=== PATIENT | female | born 1945 | race Caucasian/White ===

== ENCOUNTER → 2016-11-20 | Day surgery (SDC) | payer MEDICARE, BC ==
[~2016-11-20] MED LIST: BUPIVACAINE/EPINEPHRINE 0.5% 50 ML VIAL ONE; KETOROLAC TROMETHAMINE 30 MG/ML (IVP) VIAL IV PUSH ONE; LACTATED RINGER'S 1000 ML INJ 1,000 ML ONE; MIDAZOLAM HCL 2 MG/2 ML VIAL ONE; ONDANSETRON HCL 4 MG/2 ML VIAL IV PUSH ONE; PROPOFOL 200 MG/20 ML AMP IV ONE; ceFAZolin INJ 1,000 MG VIAL ONE
--- NOTE | 2016-11-21 11:08 | MP ---
cc: THONY FUENTES M.D. DATE OF SURGERY: 11/20/2016 PREOPERATIVE DIAGNOSIS: Left knee medial meniscus tear. POSTOPERATIVE DIAGNOSIS Left knee medial and lateral meniscus tear. PROCEDURE: Left knee arthroscopic, partial medial and partial lateral meniscectomy. ANESTHESIA General SURGEON Thony Fuentes MD ESTIMATED BLOOD LOSS: estimated blood loss was minimum. SPECIMENS: The specimen fragments discarded. DRAINS: The drain none COMPLICATIONS None known. INDICATION Heath Hughes is 71-year-old female with persistent left knee pain and positive findings on MRI for medial meniscus tear as well as chondromalacia medial compartment risks, benefits of the options of treatment were thoroughly discussed in detail informed consent was obtained. PROCEDURE The patient was brought into the operating room. She was placed under general anesthetic. The left lower extremity was prepped and draped usual sterile fashion. IV antibiotics were given. Time-out was completed. The inferolateral portal was injected with Marcaine. The portal made, a blunt trocar used to introduce the cannula that there was some mild fraying of the undersurface of patella, photograph taken, ACL appeared normal, lateral compartment showed a tear involving the anterior horn and body of the lateral meniscus. We made our medial portal and proceeded with arthroscopic partial lateral meniscectomy and took follow-up photograph here and then visualized the medial compartment showed unstable tear in the body and the posterior horn involving approximately 50% depth of the posterior horn and probably 60% of the bulk of the meniscus at the junction of the body and the posterior horn of the medial meniscus as well as some unstable chondromalacia on the weightbearing portion of the medial femoral condyle. We proceeded with arthroscopic partial medial meniscectomy using combination of basket forceps and arthroscopic shaver was smooth in contour the medial femoral condyle and switched over switching stick and came in from the opposite angle and smoothed and contoured from this angle, and then switched back for final visualization final photographs. Multiple photographs were taken. Repeat diagnostic arthroscopy revealed no loose bodies arthroscopic equipment was removed. Marcaine was injected. Steri-Strips applied. Sterile dressing applied. The patient was awoken return recovery room in stable condition. MD TABATHA Hensley/john /8:25 AM /11:01 AM
== END | disposition home or self-care (01) ==
LOC: ESDC 06:04
PROVIDERS: ATTEND Orthopaedic Surgery Sports Medicine
DX: S83.282A Other tear of lateral meniscus, current injury, left knee, initial encounter (principal); S83.242A Other tear of medial meniscus, current injury, left knee, initial encounter
CPT/HCPCS: 01400; 29880; J0690; J1885; J2250; J2405; J3010; J7120

== ENCOUNTER → 2017-08-21 | Outpatient (CLI) | payer MEDICARE, BC ==
[~2017-08-21] MED LIST changes: -BUPIVACAINE/EPINEPHRINE 0.5% 50 ML VIAL ONE; +ECASA81 PO; +ESTR2TAB PO; -KETOROLAC TROMETHAMINE 30 MG/ML (IVP) VIAL IV PUSH ONE; -LACTATED RINGER'S 1000 ML INJ 1,000 ML ONE; +LEVO75TA3 PO; -MIDAZOLAM HCL 2 MG/2 ML VIAL ONE; -ONDANSETRON HCL 4 MG/2 ML VIAL IV PUSH ONE; -PROPOFOL 200 MG/20 ML AMP IV ONE; +TRAM50 PO; -ceFAZolin INJ 1,000 MG VIAL ONE
--- NOTE | 2017-08-21 12:12 | RADRPT ---
EXAM DATE/TIME: 08/21/2017 11:50 [facility] COMPARISON: No previous studies available for comparison. INDICATIONS : Evaluate for pneumonia, pneumothorax or communicable disease. Pre op knee replacement. MEDICAL HISTORY : None. SURGICAL HISTORY : None. ENCOUNTER: Initial ACUITY: 1 day PAIN SCORE: 0/10 LOCATION: Bilateral chest FINDINGS: PA and lateral views of the chest demonstrate the lungs to be symmetrically aerated without evidence of mass, infiltrate or effusion. The cardiomediastinal contours are unremarkable. Osseous structure s are intact. CONCLUSION: No acute disease. Jose Armando Vasquez MD on August 21, 2017 at 12:10 Board Certified Radiologist. This report was verified electronically.
[2017-08-21 12:38] LABS: AUTOMATED NEUTROPHIL # 3.5 TH/MM3 (1.8-7.7); BASOPHIL # 0.1 TH/MM3 (0-0.2); BASOPHIL % 0.9 % (0.0-2.0); EOSINOPHIL # 0.2 TH/MM3 (0-0.4); EOSINOPHIL % 2.5 % (0.0-4.0); HEMATOCRIT 38.9 % (35.0-46.0); HEMOGLOBIN 12.9 GM/DL (11.6-15.3); LYMPH % 37.8 % (9.0-44.0); LYMPHOCYTE # 2.6 TH/MM3 (1.0-4.8); MEAN CELL VOLUME 89.8 FL (80.0-100.0); MEAN CORPUSCULAR HEMOGLOBIN 29.8 PG (27.0-34.0); MEAN CORPUSCULAR HGB CONC 33.2 % (32.0-36.0); MEAN PLATELET VOLUME 8.7 FL (7.0-11.0); MONO % 7.9 % (0.0-8.0); MONOCYTE # 0.5 TH/MM3 (0-0.9); NEUT % 50.9 % (16.0-70.0); PLATELET COUNT 260 TH/MM3 (150-450); RED BLOOD COUNT 4.34 MIL/MM3 (4.00-5.30); RED CELL DISTRIBUTION WIDTH 12.7 % (11.6-17.2); WHITE BLOOD COUNT 6.8 TH/MM3 (4.0-11.0)
[2017-08-21 12:40] LABS: BILIRUBIN, URINE NEG (NEG); BLOOD, URINE NEG (NEG); GLUCOSE,URINE NEG (NEG); KETONE, URINE NEG (NEG); MUCUS URINE FEW /lpf (OCC); NITRITE,URINE NEG (NEG); SQUAMOUS EPITHELIAL CELL URINE 1 /hpf (0-5); URINE COLOR YELLOW (YELLW/STRAW); URINE LEUKOCYTE ESTERASE NEG (NEG)
[2017-08-21 12:45] LABS: INTERNATIONAL NORMALIZED RATIO 0.9 RATIO; PROTHROMBIN TIME - PATIENT 9.1 SEC (9.8-11.6)
[2017-08-21 12:55] LABS: BICARBONATE 29.1 MEQ/L (21.0-32.0); CALCIUM 8.6 MG/DL (8.5-10.1); CREATININE 0.77 MG/DL (0.50-1.00)
--- NOTE | 2017-08-23 00:30 | EKG ---
Date Performed: 08/21/2017 Time Performed: 11:11:24 PTAGE: 72 years EKG: Sinus rhythm WITH SINUS ARRHYTHMIA LOW QRS VOLTAGE IN PRECORDIAL LEADS PATTERN CONSISTENT WITH PULMONARY DISEASE INCOMPLETE RIGHT BUNDLE BRANCH BLOCK PROBABLE SEPTAL MYOCARDIAL INFARCTION, OF INDETERMINATE AGE ABNO RMAL ECG NO PREVIOUS TRACING DOCTOR: Franky Lubin Interpretating Date/Time 08/23/2017 00:30:42
== END ==
LOC: CPRE 10:51
PROVIDERS: ATTEND Orthopaedic Surgery Sports Medicine
DX: Z01.810 Encounter for preprocedural cardiovascular examination (principal); Z01.811 Encounter for preprocedural respiratory examination; Z01.812 Encounter for preprocedural laboratory examination; M79.609 Pain in unspecified limb; Z96.60 Presence of unspecified orthopedic joint implant; Z79.01 Long term (current) use of anticoagulants; Z13.9 Encounter for screening, unspecified
CPT/HCPCS: 36415; 71046; 80048; 81001; 85025; 85610; 85730; 93005

== ENCOUNTER 2017-09-03 05:07 | Observation (INO) | payer MEDICARE, BC ==
[~2017-09-03] VITALS: Ht 163.8 cm; Wt 85.8 kg
[2017-09-03] MEDS ORDERED: LACTATED RINGER'S 1000 ML IV PRN (05:30)
[2017-09-03] MEDS ORDERED: CHLORHEXIDINE GLUCONATE 2 % 1 PACK (2 CLOTHS) TOPICAL PRN (05:30)
[2017-09-03] MEDS ORDERED: SODIUM CHLORID 0.9% 500 ML IV PRN (05:30)
[2017-09-03] MEDS ORDERED: POVIDONE IODINE 5% (ANTISEPSIS KIT) 4 APPLICATIONS EACH NARE PRN (05:30)
[2017-09-03] MEDS ORDERED: METOPROLOL TARTRATE 25 MG TAB PO PRN (05:30)
[2017-09-03] MEDS ORDERED: FAT EMULSION 20% INJ 0 ML ONE (05:44)
[2017-09-03] MEDS ORDERED: EXPAREL PERI-ARTICULAR INJECTION (TOTAL VOL. 60 ML) P-ARTICULR SCH ×4 (05:45→06:30)
[2017-09-03] MEDS ORDERED: ceFAZolin 2 GM PREMIX 50 ML IV SCH (05:45)
[2017-09-03] MEDS ORDERED: SODIUM CHLORIDE 0.9% IV SCH (05:45)
[2017-09-03] MEDS ORDERED: TRANEXAMIC ACID IV SCH (05:45)
[2017-09-03] MEDS ORDERED: VANCOMYCIN 1000 MG/NS 250 ML (for <70 kg) IV SCH ×2 (05:45)
[2017-09-03] MEDS ORDERED: CHLORHEXIDINE GLUCONATE 4% SOLN 120 ML BTL TOPICAL SCH (05:45)
[2017-09-03] MEDS ORDERED: PROPOFOL 500 MG/50 ML INJ 50 ML ONE (06:16)
[2017-09-03] MEDS ORDERED: LIDOCAINE HCL 1% PF 5 ML AMPULE ONE (06:20)
[2017-09-03] MEDS ORDERED: BUPIVACAINE LIPOSOME PF 1.3% 20 ML VIAL ONE (06:20)
[2017-09-03] MEDS ORDERED: MIDAZOLAM HCL 2 MG/2 ML VIAL ONE (06:21)
[2017-09-03] MEDS ORDERED: GENTAMICIN SULFATE 80 MG/2 ML VIAL ONE (06:28)
[2017-09-03] MEDS ORDERED: DO NOT ADM ANY ANTICOAGULANT DRUGS PRN (09:10)
[2017-09-03] MEDS ORDERED: *morphine SULFATE 4 MG/ML PERIprocedure ONLY ONE (09:18)
--- NOTE | 2017-09-03 09:25 | PD.OP ---
Operative Report Preoperative Diagnosis: (1) Osteoarthritis of left knee Postoperative Diagnosis: (1) Osteoarthritis of left knee Procedure: Left Knee Unicompartmental Osteoarthritis Anesthesia: Regional and General Surgeon: Jc Fuentes MD Bar Examiner(s): Jc Mac MD Sep 03, 2017 09:25
[2017-09-03] MEDS ORDERED: *morphine SULFATE 10 MG/ML PERIprocedure ONLY ONE (09:26)
[2017-09-03] MEDS ORDERED: SODIUM CHLORIDE 0.9% FLUSH 10 ML FLUSH IV FLUSH PRN (09:45)
[2017-09-03] MEDS ORDERED: ONDANSETRON HCL 4 MG/2 ML VIAL IV PUSH PRN (09:45)
[2017-09-03] MEDS ORDERED: HYDROmorphone HCL PF 2 MG/ML VIAL ONE (09:46)
[2017-09-03] MEDS ORDERED: LACTATED RINGER'S 1000 ML INJ 1,000 ML IV SCH (10:00)
--- NOTE | 2017-09-03 10:32 | RADRPT ---
EXAM DATE/TIME: 09/03/2017 09:53 [facility] COMPARISON: CHEST PA & LAT, August 21, 2017, 11:50. INDICATIONS : Post left knee replacement. MEDICAL HISTORY : None. SURGICAL HISTORY : Hysterectomy. ENCOUNTER: Initial ACUITY: 1 day PAIN SCORE: 8/10 LOCATION: Left patella. FINDINGS: The patient is post left hemiarthroplasty in the medial compartment. Orthopedic hardware is well-posi tioned. The lateral compartment appears within normal limits. There are skin jenelle in place. CONCLUSION: 1. Orthopedic hardware is well-positioned. Harsh Arguelles MD on September 03, 2017 at 10:30 Board Certified Radiologist. This report was verified electronically.
[2017-09-03] MEDS: traMADol HCL 50 MG TAB PO PRN (10:40)
[2017-09-03] MEDS ORDERED: ceFAZolin 2 GM PREMIX 50 ML IV ONE (11:00)
[2017-09-03] MEDS: ACETAMINOPHEN/HYDROcodone 325 MG/5 MG TAB PO PRN ×3 (11:45→20:33)
[2017-09-03] MEDS ORDERED: PROPOFOL 200 MG/20 ML AMP IV ONE (12:00)
[2017-09-03] MEDS ORDERED: LIDOCAINE HCL 1% PF 5 ML SYRINGE OTHER ONE (12:00)
[2017-09-03] MEDS ORDERED: ROCURONIUM INJ 50 MG/5 ML SYRINGE IV PUSH ONE (12:00)
[2017-09-03] MEDS ORDERED: ONDANSETRON HCL 4 MG/2 ML VIAL IV PUSH ONE (12:00)
[2017-09-03] MEDS ORDERED: DEXAMETHASONE SOD PHOS 4 MG/ML VIAL IV ONE (12:00)
[2017-09-03 16:00] VITALS: BP 158/72; PULSE 68; RESP 18; TEMP 96; O2SAT 95
[2017-09-03 16:48] VITALS: BP 176/77; PULSE 66; RESP 16; TEMP 96.6; O2SAT 96
[2017-09-03 20:20] VITALS: BP 159/73; PULSE 69; RESP 14; TEMP 97.9; O2SAT 96
[2017-09-03] MEDS: SODIUM CHLORIDE 0.9% FLUSH 10 ML FLUSH IV FLUSH SCH (21:00)
[2017-09-04] VITALS: BP 143/72; PULSE 73; RESP 17; TEMP 96.7; O2SAT 96
[2017-09-04] MEDS: ACETAMINOPHEN/HYDROcodone 325 MG/5 MG TAB PO PRN ×3 (00:45→08:19)
[2017-09-04 04:05] VITALS: BP 147/66; PULSE 77; RESP 17; TEMP 98.8; O2SAT 96
[2017-09-04] MEDS: traMADol HCL 50 MG TAB PO PRN (05:44)
[2017-09-04] MEDS ORDERED: LEVOTHYROXINE SODIUM 75 MCG TAB PO SCH (06:00)
--- NOTE | 2017-09-04 07:55 | PD.ORT.PN ---
Subjective Subjective Remarks Patient pain under control Objective Vitals Vital Signs Date Time Temp Pulse Resp B/P (MAP) Pulse Ox O2 Delivery O2 Flow Rate FiO2 09/04/17 04:05 98.8 77 17 147/66 (93) 96 09/04/17 00:00 96.7 73 17 143/72 (95) 96 09/03/17 20:20 97.9 69 14 159/73 (101) 96 09/03/17 16:48 96.6 66 16 176/77 (110) 96 09/03/17 16:00 96.0 68 18 158/72 (100) 95 09/03/17 13:30 97.6 69 16 143/65 (91) 95 Room Air 09/03/17 13:00 70 16 140/60 (86) 94 Room Air 09/03/17 12:00 71 16 145/67 (93) 94 Room Air 09/03/17 11:40 16 09/03/17 11:00 74 16 148/69 (95) 97 Nasal Cannula 2 09/03/17 10:30 97.7 72 16 152/65 (94) 95 Nasal Cannula 2 09/03/17 10:15 15 09/03/17 10:00 97.1 75 15 158/70 (99) 100 Nasal Cannula 3 09/03/17 09:45 78 15 159/76 (103) 98 Nasal Cannula 3 09/03/17 09:31 15 09/03/17 09:30 96.7 80 15 160/79 (106) 97 Nasal Cannula 3 09/03/17 09:23 15 09/03/17 09:15 82 15 171/80 (110) 99 Nasal Cannula 4 09/03/17 09:10 96.3 84 18 175/76 (109) 98 Nasal Cannula 4 09/03/17 09:10 96.3 I/O 09/03/17 09/03/17 09/03/17 09/04/17 09/04/17 09/04/17 07:00 15:00 23:00 07:00 15:00 23:00 Intake Total 1260 ml 360 ml 360 ml Output Total 50 ml Balance 1210 ml 360 ml 360 ml Intake Oral 360 ml 360 ml IV Total 1260 ml Output Estimated Blood Loss 50 ml # Voids 0 1 3 # Bowel Movements 0 0 Imaging Post op xrays show good alignment Objective Remarks Dressing in place Calves soft NVI Assessment & Plan Ortho Post Op Day #: 1 (Left Unicompartmental knee replacement) Problem List: Assessment and Plan PT WBAT Ok to D/C home Home PT [place] pain med Aspirin for DVT Prophylaxis Jc Fuentes MD Sep 04, 2017 07:55
[2017-09-04 08:00] VITALS: BP 166/77; PULSE 74; RESP 16; TEMP 98.2; O2SAT 95
[2017-09-04] MEDS ORDERED: HYDR-3516 PO (08:00)
[2017-09-04] MEDS: SODIUM CHLORIDE 0.9% FLUSH 10 ML FLUSH IV FLUSH SCH (08:22)
[2017-09-04] MEDS ORDERED: ACETAMINOPHEN/HYDROcodone 325 MG/5 MG TAB PO PRN (08:30)
[2017-09-04] MEDS ORDERED: ESTRADIOL 1 MG TAB PO SCH (09:00)
[2017-09-04] MEDS ORDERED: ASPIRIN 81 MG CHEW TAB PO SCH (09:00)
[2017-09-04] MEDS ORDERED: WALKER WHEELS/F1 MIS (10:17)
--- NOTE | 2017-09-04 19:28 | MP ---
cc: THONY LANDERS DATE OF SURGERY 09/03/17 PREOPERATIVE DIAGNOSIS Left knee medial compartment severe osteoarthritis. POSTOPERATIVE DIAGNOSIS Left knee medial compartment severe osteoarthritis. PROCEDURE Left knee unicompartmental arthroplasty medial compartment ANESTHESIA Adductor block and general SURGEON Christina Landers MD SHOE FITTER SURGEON Yaakov EAGLE ESTIMATED BLOOD LOSS 50 mL DRAINS None. SPECIMEN Bony fragments discarded. COMPLICATIONS None known. INDICATION Izabel Hughes is a 72-year-old female with debilitating varus medial compartment osteoarthritis. She is failing conservative management. The risks, benefits and alternative and treatment options were thoroughly discussed and a detailed informed consent was obtained. The airline pilot/first officer, Roby Mon, is an advanced registered nurse practitioner. His skill set was medically necessary for the performance of the operation. PROCEDURE IN DETAIL The patient was brought into the operating room after receiving an adductor canal block in the preop holding area. She was then placed under general anesthesia in the operating room. The left lower extremity was prepped and draped in the usual sterile fashion. IV antibiotics were given. Time-out was completed. Anterior approach to the knee in alignment with the medial edge of the patella and patellar tendon. This was taken down to the subcutaneous tissue. Hemostasis was obtained with the use of electrocautery. Tourniquet had been inflated. A medial parapatellar incision was used and the fat pad was tagged for later repair. We noted the severe osteoarthritis of the medial compartment. We did some partial subperiosteal dissection anterior tibia. We aligned our tibial resection guide and used our vertically oriented reciprocating saw and then our horizontally oscillating saw and resected 2 mm of bone to the lowest portion. We then proceeded with sizing and alignment of the tibial component which is sized for a size four. then we proceeded to make our 8 mm distal femoral cut. I then proceeded to size the tibia size 4, used a size 4 cutting block. All cuts made, peg holes made. We then resected the meniscus and injected our long-acting Marcaine and then we trialed our components. The 9 mm polyethylene was most appropriate. Full extension and gravity flexion to 135 degrees. We made our finishing cuts on the tibia and then proceeded with pulse lavage antibiotic irrigation. We then proceeded with mixing our cement after the components were on the field and then placing our components, removing residual cement and then performing our trial reduction again. Decided on the size 9 and a size 9 initial polyethylene would not seat into the prosthesis and ultimately a second size 9 polyethylene was opened which then did seat into position. At this point, we irrigated out with copious amounts of irrigation. We proceeded to close the fat pad and then proceeded to close in layers. The tourniquet was let down. Subcuticular on the skin with 3-0 and then jenelle on the skin. Xeroform applied. Sterile dressing applied. Sof-Rol and Wiliam wrap applied. The patient was awaken and returned to recovery room in stable condition. MD TABATHA Hensley/ /9:13 AM /7:16 PM
== END 2017-09-04 12:32 | disposition home or self-care (01) ==
LOC: HSDC 05:07 → HSDI 09:46 → N06B 13:39
PROVIDERS: ADMIT Orthopaedic Surgery Sports Medicine; ATTEND Orthopaedic Surgery Sports Medicine
DX: M17.12 Unilateral primary osteoarthritis, left knee (principal); I10 Essential (primary) hypertension
CPT/HCPCS: 01400; 27446; 73560; 86850; 86900; 86901; 96374; 97110; 97116; 97162; C1776; C9290; G0378; G8987; G8988; J0690; J1100; J1170; J1580; J2250; J2270; J2405; J3010; J3370; J7050; J7120